=== PATIENT | female | born 1930 | race Caucasian/White ===

== ENCOUNTER → 2016-08-25 | Outpatient (CLI) | payer OTHER ==
[~2016-08-25] MED LIST: ACET-1311 PO; ACET325T96 PO; ASPI-435 PO; BRIM0.1S OPL; CITA20TA9 PO; COMPOUND TOP; ESCI1TAB10 PO; GABA-113 PO; HALO0.5T9 PO; HALO5INJ IM; LOSA50TA6 PO; MELA1TAB3 PO; MOML PO; NRN/100 PO; OMEP20CA59 PO; SODIENE PR
[2016-08-25 11:25] LABS: BLOOD UREA NITROGEN 15 mg/dl (7-18); BUN/CREATININE RATIO 16.5 (10-20); CALCIUM 8.8 mg/dl (8.5-10.1); CARBON DIOXIDE 28 mmol/L (21-32); CHLORIDE 105 mmol/L (98-107); CREATININE 0.88 mg/dl (0.60-1.20); GLUCOSE 109 mg/dl (70-99); POTASSIUM 3.8 mmol/L (3.5-5.1); SODIUM 141 mmol/L (136-145)
== END ==
LOC: C.LABUPHEI 10:44
PROVIDERS: ATTEND Family Medicine
DX: I10 Essential (primary) hypertension (principal)

== ENCOUNTER 2016-11-04 22:27 | Inpatient (IN) | payer OTHER ==
[~2016-11-04] VITALS: Ht 152.4 cm; Wt 54.8 kg
[~2016-11-04 22:27] MED LIST changes: -ACET325T96 PO; -ESCI1TAB10 PO; -GABA-113 PO; -HALO0.5T9 PO; -HALO5INJ IM; -OMEP20CA59 PO
[2016-11-05] VITALS (7 sets, daily range): BP systolic 138–162; BP diastolic 72–101; PULSE 77–96; TEMP 36.4–37.3; O2SAT 97–99; Ht 152.4 cm; Wt 54.8 kg
[2016-11-05 00:07] LABS: HEMATOCRIT 37.1 % (37-47); MEAN CELL VOLUME 94.2 fL (80-100); MEAN CORPUSCULAR HEMOGLOBIN 31.7 pg (25-34); MEAN CORPUSCULAR HGB CONC 33.7 g/dl (32-36); MEAN PLATELET VOLUME 10.8 fL (7.4-10.4); PLATELET COUNT 183 K/uL (130-400); RED BLOOD COUNT 3.94 M/uL (4.2-5.4)
[2016-11-05 00:21] LABS: PROTHROMBIN TIME (PATIENT) 10.7 SECONDS (9.0-12.0)
[2016-11-05] MEDS ORDERED: ESCI1TAB10 PO (00:26)
[2016-11-05 00:29] LABS: CALCIUM 8.9 mg/dl (8.5-10.1); CREATININE 0.95 mg/dl (0.60-1.20); POTASSIUM 3.9 mmol/L (3.5-5.1)
[2016-11-05] MEDS ORDERED: HALO0.5T9 PO (00:29)
[2016-11-05] MEDS ORDERED: GABA-113 PO (00:32)
[2016-11-05] MEDS ORDERED: ACET325T96 PO (00:33)
[2016-11-05] MEDS ORDERED: HALO5INJ IM (00:37)
[2016-11-05] MEDS ORDERED: MOML PO (00:38)
[2016-11-05 00:42] LABS: COMPLETE YES; EOS % 0.2 %; IG% 0.3 %; LYMPH % 4.8 %; LYMPH ABS # 0.51 K/uL (1.2-3.4); NEUT % 90.7 %
[2016-11-05 02:16] LABS: URINE APPEARANCE TURBID (CLEAR); URINE BILIRUBIN NEG (NEG); URINE COLOR YELLOW; URINE NITRITE NEG (NEG); UROBILINOGEN NEG (NEG)
[2016-11-05 02:41] LABS: MANUAL MICROSCOPIC REQUIRED? NO; REVIEW REQ? NO
[2016-11-05 02:42] LABS: SULFASALICYLIC ACID POS (NEG)
[2016-11-05] MEDS ORDERED: CEFTRIAXONE SOD INJ 1 GM ADDVIAL IV STA (03:43)
[2016-11-05] MEDS ORDERED: POLYETHYLENE (MIRALAX) 17 GM PACK PO PRN (05:45)
[2016-11-05] MEDS ORDERED: HALOPERIDOL LACTATE 5 MG/ML 1 ML VIAL IM PRN (05:45)
[2016-11-05] MEDS ORDERED: ACETAMINOPHEN 325 MG TAB PO PRN (05:45)
[2016-11-05] MEDS ORDERED: ALUMINUM/MAGNESIUM/SIMETH (MAALOX MAX) 30 ML UDC PO PRN (05:45)
[2016-11-05] MEDS ORDERED: MAGNESIUM HYDROXIDE SUSP 30 ML UDC PO PRN (05:45)
[2016-11-05] MEDS ORDERED: ONDANSETRON INJ 2 MG/ML 2 ML VIAL IV PRN (05:45)
--- NOTE | 2016-11-05 06:04 | DIAGNOSTIC IMAGING REPORT ---
CHEST ONE VIEW PORTABLE CLINICAL HISTORY: Trauma trauma COMPARISON STUDY: 04/26/2016 FINDINGS: The bones soft tissues and hemidiaphragms are normal. The cardiomediastinal silhouette is normal. The lungs are clear. The pulmonary vasculature is normal. IMPRESSION: Negative chest. Electronically signed by: Willis Dunaway M.D. 11/05/2016 6:03 AM Dictated Date/Time: 11/05/2016 6:03 AM
--- NOTE | 2016-11-05 06:05 | DIAGNOSTIC IMAGING REPORT ---
RIGHT HIP UNILATERAL 2 VIEWS CLINICAL HISTORY: right hip pain, fall Right trauma. Pain. COMPARISON: None. DISCUSSION: Degenerative change right hip. No acute bony abnormality. Degenerative change right acetabulum. Peripheral osteophytic formation throughout. There is no evidence for soft tissue swelling. IMPRESSION: Degenerative change. No acute bony abnormality. Electronically signed by: Willis Dunaway M.D. 11/05/2016 6:04 AM Dictated Date/Time: 11/05/2016 6:03 AM
--- NOTE | 2016-11-05 06:06 | DIAGNOSTIC IMAGING REPORT ---
LEFT HIP UNILATERAL 2 VIEWS CLINICAL HISTORY: left hip pain trauma COMPARISON: None. DISCUSSION: Intertrochanteric fracture left hip. Superior migration left femoral shaft. No evidence for acetabular protrusion. Mild fecal impaction. There is no evidence for soft tissue swelling. IMPRESSION: Intertrochanteric fracture left hip. Moderate superior migration left femoral shaft. Electronically signed by: Willis Dunaway M.D. 11/05/2016 6:05 AM Dictated Date/Time: 11/05/2016 6:04 AM
--- NOTE | 2016-11-05 06:08 | History and Physical ---
History & Physical Date & Time of Service: Nov 05, 2016 at 05:55 Chief Complaint: Fall/ Rt Hip Fx / Fr [place] Primary Care Physician: Josh Thompson History of Present Illness Source: family 86 y/o F w/Hx dementia presents from a nursing facility following a mechanical fall having sustained a fracture of her L hip. The pt is not able to reliably contribute to the HPI and was complaining only of pain at the fracture site at the [place]. I did obtain information form her grandson who is her POA and the NH. She has been in her normal state of health and is able to ambulate regularly. Her grandson states that aside from dementia she does not have any active medical issues although she is taking an antihypertensive. He also stated that he believes she may not want surgery. Past Medical/Surgical History Medical Problems: (1) Alzheimer's disease Status: Chronic Family History No pertinent family history Could not obtain Social History Smoking Status: Never Smoker Alcohol Use: none Allergies Coded Allergies: Penicillins (Unverified Allergy, Severe, ., 04/26/16) Sulfa Antibiotics (Unverified Allergy, Intermediate, ., 04/26/16) Home Medications Scheduled Acetaminophen (Tylenol), 650 MG PO BID Aspirin (Aspirin 81), 1 TAB PO DAILY Escitalopram Oxalate (Lexapro), 20 MG PO QAM Gabapentin (Neurontin), 300 MG PO TID Losartan Potassium (Cozaar), 100 MG PO QAM Magnesium Hydroxide (Milk Of Magnesia), 30 ML PO DAILY/PRN Melatonin-Pyridoxine (Melatonin), 3 MG PO HS [compound], 1 DOSE TOP Q8 Scheduled PRN Acetaminophen Tab (Tylenol), 650 MG PO Q6 PRN for Pain or Fever Haloperidol Lactate (Haldol), 5 MG IM Q24H PRN for Anxiety Review of Systems Could not obtain - c/o pain in hip only Physical Exam Vital Signs Date Time Temp Pulse Resp B/P Pulse Ox O2 Delivery O2 Flow Rate FiO2 11/05/16 05:26 74 18 138/70 97 Nasal Cannula 3.0 11/05/16 03:36 76 20 128/89 97 Nasal Cannula 3.0 11/05/16 02:01 74 21 138/82 97 Nasal Cannula 3.0 11/05/16 00:01 95 21 134/102 98 Nasal Cannula 3.0 11/04/16 23:32 98 12 137/104 98 Nasal Cannula 3.0 11/04/16 22:45 95 Nasal Cannula 3.0 11/04/16 22:40 98 11/04/16 22:37 37.7 96 17 158/102 89 Room Air General Appearance: no apparent distress Head: normocephalic, atraumatic Eyes: normal inspection, EOMI Neck: supple, no JVD Respiratory/Chest: chest non-tender, lungs clear, normal breath sounds Cardiovascular: regular rate, rhythm, no edema, no gallop, no JVD Abdomen/GI: normal bowel sounds, non tender, soft Back: normal inspection, no CVA tenderness, no muscle spasm, normal range of motion Extremities/Musculoskelatal: normal inspection, no calf tenderness, normal capillary refill 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, + pertinent finding (disoriented at baseline) Skin: + pertinent finding (pallor noted) Diagnostics Laboratory Results Results Past 24 Hours Test 11/04/16 23:40 11/05/16 00:00 Range/Units White Blood Count 10.60 4.8-10.8 K/uL Red Blood Count 3.94 4.2-5.4 M/uL Hemoglobin 12.5 12.0-16.0 g/dL Hematocrit 37.1 37-47 % Mean Corpuscular Volume 94.2 80-100 fL Mean Corpuscular Hemoglobin 31.7 25-34 pg Mean Corpuscular Hemoglobin Concent 33.7 32-36 g/dl Platelet Count 183 130-400 K/uL Mean Platelet Volume 10.8 7.4-10.4 fL Neutrophils (%) (Auto) 90.7 % Lymphocytes (%) (Auto) 4.8 % Monocytes (%) (Auto) 4.0 % Eosinophils (%) (Auto) 0.2 % Basophils (%) (Auto) 0.0 % Neutrophils # (Auto) 9.62 1.4-6.5 K/uL Lymphocytes # (Auto) 0.51 1.2-3.4 K/uL Monocytes # (Auto) 0.42 0.11-0.59 K/uL Eosinophils # (Auto) 0.02 0-0.5 K/uL Basophils # (Auto) 0.00 0-0.2 K/uL RDW Standard Deviation 45.8 36.4-46.3 fL RDW Coefficient of Variation 13.2 11.5-14.5 % Immature Granulocyte % (Auto) 0.3 % Immature Granulocyte # (Auto) 0.03 0.00-0.02 K/uL Red Blood Cell Morphology Unremarkable Prothrombin Time 10.7 9.0-12.0 SECONDS Prothromb Time International Ratio 1.0 0.9-1.1 Activated Partial Thromboplast Time 26.8 21.0-31.0 SECONDS Partial Thromboplastin Ratio 1.0 Sodium Level 140 136-145 mmol/L Potassium Level 3.9 3.5-5.1 mmol/L Chloride Level 106 98-107 mmol/L Carbon Dioxide Level 25 21-32 mmol/L Anion Gap 9.0 3-11 mmol/L Blood Urea Nitrogen 26 7-18 mg/dl Creatinine 0.95 0.60-1.20 mg/dl Est Creatinine Clear Calc Drug Dose 30.0 ml/min Estimated GFR () 62.4 Estimated GFR (Non- 53.9 BUN/Creatinine Ratio 27.0 10-20 Random Glucose 158 70-99 mg/dl Calcium Level 8.9 8.5-10.1 mg/dl Urine Color YELLOW Urine Appearance TURBID CLEAR Urine pH 8.0 4.5-7.5 Urine Specific [place] 1.020 1.000-1.030 Urine Protein TRACE NEG Urine Glucose (UA) NEG NEG Urine Ketones NEG NEG Urine Occult Blood 1+ NEG Urine Nitrite NEG NEG Urine Bilirubin NEG NEG Urine Urobilinogen NEG NEG Urine Leukocyte Esterase LARGE NEG Urine WBC (Auto) >30 0-5 /hpf Urine RBC (Auto) 10-30 0-4 /hpf Urine Hyaline Casts (Auto) 1-5 0-5 /lpf Urine Epithelial Cells (Auto) 10-20 0-5 /lpf Urine Bacteria (Auto) 2+ NEG Microbiology Results 11/05/16 Urine Culture, Received Pending Diagnostic Radiology L intertrochanteric fracture EKG Sinus - inf Q wvs Impression Assessment and Plan 86 y/o F w/Hx dementia presents from a nursing facility following a mechanical fall having sustained a fracture of her L hip. The pt is not able to reliably contribute to the HPI and was complaining only of pain at the fracture site. I did obtain information form her grandson who is her POA and the NH. She has been in her normal state of health and is able to ambulate regularly. Her grandson states that aside from dementia she does not have any active medical issues although she is taking an antihypertensive. He also stated that he believes she may not want surgery. 1) Hip fracture - unclear if her grandson would like her to have any surgery - it may depend on the extent of the procedure needed. We will consult orhto and they can have a discssion with her grandson after evaluating her. From a medical standpoint she is likely low risk for short-term adverse outcome however her dementia obviously needs to be considered. RCRI is technically between 0.4-0.9% if you consider her inferior Q waves to be pathological. Will keep NPO, hold ASA and Losartan - provide IVF and continue her psychoactive meds. Morphine provided for pain control 2) HTN - Losartan held as above. 3) Dementia - supportive measures - cont home meds Full code - SCDs Total time for this admit including review of labs, imaging, EKG - discussion with ER attending and pts POA - 33min Level of Care Med/Surg Resuscitation Status FULL RESUSCITATION VTE Prophylaxis VTE Risk Assessment Done? Y/N: Yes Risk Level: Moderate Given or contraindicated: SCD's
--- NOTE | 2016-11-05 06:21 | EMERGENCY ROOM VISIT NOTE ---
History Report prepared by Brittany: Aris Loving Under the Supervision of: Dr. Lenny Quevedo M.D. First contact with patient: 23:08 Chief Complaint: FALL Stated Complaint: FALL/ RT HIP FX / FR [facility] History of Present Illness The patient is an 86 year old female who presents to the Emergency Room with complaints of persistent left hip pain that started about 5 hours ago. The patient presents from [facility] after having a ground level fall. [facility] called her grandson who has power of transactional attorney and did an outpatient x-ray. The patient was transported to the ER for further evaluation. The discomfort is worsened with movement. Pt denies head pain, abdominal pain, or right leg pain.The patient's HPI is limited due to dementia. Source of History: patient, EMS History Limited By: dementia Onset: prior to arrival Position: pelvis (left hip) Timing: other (persistent) Modifying Factors (Worsening): movement Review of Systems The patient's ROS is limited due to dementia. Past Medical & Surgical Medical Problems: (1) Alzheimer's disease (2) Hip fracture Family History No pertinent family history Social History Smoking Status: Unknown if Ever Smoked Marital Status: Housing Status: fdc Occupation Status: retired Current/Historical Medications Scheduled Acetaminophen (Tylenol), 650 MG PO BID Aspirin (Aspirin 81), 1 TAB PO DAILY Escitalopram Oxalate (Lexapro), 20 MG PO QAM Gabapentin (Neurontin), 300 MG PO TID Losartan Potassium (Cozaar), 100 MG PO QAM Magnesium Hydroxide (Milk Of Magnesia), 30 ML PO DAILY/PRN Melatonin-Pyridoxine (Melatonin), 3 MG PO HS [compound], 1 DOSE TOP Q8 Scheduled PRN Acetaminophen Tab (Tylenol), 650 MG PO Q6 PRN for Pain or Fever Haloperidol Lactate (Haldol), 5 MG IM Q24H PRN for Anxiety Allergies Coded Allergies: Penicillins (Unverified Allergy, Severe, ., 04/26/16) Sulfa Antibiotics (Unverified Allergy, Intermediate, ., 04/26/16) Physical Exam Vital Signs Date Time Temp Pulse Resp B/P Pulse Ox O2 Delivery O2 Flow Rate FiO2 11/05/16 05:26 74 18 138/70 97 Nasal Cannula 3.0 11/05/16 03:36 76 20 128/89 97 Nasal Cannula 3.0 11/05/16 02:01 74 21 138/82 97 Nasal Cannula 3.0 11/05/16 00:01 95 21 134/102 98 Nasal Cannula 3.0 11/04/16 23:32 98 12 137/104 98 Nasal Cannula 3.0 11/04/16 22:45 95 Nasal Cannula 3.0 11/04/16 22:40 98 11/04/16 22:37 37.7 96 17 158/102 89 Room Air Physical Exam GENERAL: Awake, tired and mildly uncomfortable, in no distress HENT: Normocephalic, atraumatic. Oropharynx unremarkable. EYES: Normal conjunctiva. Sclera non-icteric. NECK: Supple. No nuchal rigidity. FROM. No JVD. RESPIRATORY: Clear to auscultation. CARDIAC: Regular rate, normal rhythm. Extremities warm and well perfused. Pulses equal. ABDOMEN: Soft, non-distended. No tenderness to palpation. No rebound or guarding. No masses. RECTAL: Deferred. MUSCULOSKELETAL: Chest examination reveals no tenderness. The back is symmetrical on inspection without obvious abnormality. There is no CVA tenderness to palpation. No joint edema. Tenderness about left hip. LOWER EXTREMITIES: Calves are equal size bilaterally and non-tender. No edema. No discoloration. NEURO: Demented sensorium. No sensory or motor deficits noted. SKIN: No rash or jaundice noted. Small skin tear on left elbow. Medical Decision & Procedures ER Provider Diagnostic Interpretation: X-ray: Per my interpretation, radiologist review. Chest x-ray. Findings: A chest x-ray was performed and revealed no pneumothorax , effusion, infiltrate, pulmonary edema, free air under the diaphragm, or wide mediastinum. Hip X-Ray: Left hip shows intertrochanteric fracture Hip X-Ray: Right hip is unremarkable except for degenerative changes. Laboratory Results 11/04/16 23:40 Red Blood Count 3.94, Mean Corpuscular Volume 94.2, Mean Corpuscular Hemoglobin 31.7, Mean Corpuscular Hemoglobin Concent 33.7, Mean Platelet Volume 10.8, Neutrophils (%) (Auto) 90.7, Lymphocytes (%) (Auto) 4.8, Monocytes (%) (Auto) 4.0, Eosinophils (%) (Auto) 0.2, Basophils (%) (Auto) 0.0, Neutrophils # (Auto) 9.62, Lymphocytes # (Auto) 0.51, Monocytes # (Auto) 0.42, Eosinophils # (Auto) 0.02, Basophils # (Auto) 0.00 11/04/16 23:40 Test 11/04/16 23:40 11/05/16 00:00 White Blood Count 10.60 K/uL (4.8-10.8) Red Blood Count 3.94 M/uL (4.2-5.4) Hemoglobin 12.5 g/dL (12.0-16.0) Hematocrit 37.1 % (37-47) Mean Corpuscular Volume 94.2 fL (80-100) Mean Corpuscular Hemoglobin 31.7 pg (25-34) Mean Corpuscular Hemoglobin Concent 33.7 g/dl (32-36) Platelet Count 183 K/uL (130-400) Mean Platelet Volume 10.8 fL (7.4-10.4) Neutrophils (%) (Auto) 90.7 % Lymphocytes (%) (Auto) 4.8 % Monocytes (%) (Auto) 4.0 % Eosinophils (%) (Auto) 0.2 % Basophils (%) (Auto) 0.0 % Neutrophils # (Auto) 9.62 K/uL (1.4-6.5) Lymphocytes # (Auto) 0.51 K/uL (1.2-3.4) Monocytes # (Auto) 0.42 K/uL (0.11-0.59) Eosinophils # (Auto) 0.02 K/uL (0-0.5) Basophils # (Auto) 0.00 K/uL (0-0.2) RDW Standard Deviation 45.8 fL (36.4-46.3) RDW Coefficient of Variation 13.2 % (11.5-14.5) Immature Granulocyte % (Auto) 0.3 % Immature Granulocyte # (Auto) 0.03 K/uL (0.00-0.02) Red Blood Cell Morphology Unremarkable Prothrombin Time 10.7 SECONDS (9.0-12.0) Prothromb Time International Ratio 1.0 (0.9-1.1) Activated Partial Thromboplast Time 26.8 SECONDS (21.0-31.0) Partial Thromboplastin Ratio 1.0 Anion Gap 9.0 mmol/L (3-11) Est Creatinine Clear Calc Drug Dose 30.0 ml/min Estimated GFR () 62.4 Estimated GFR (Non- 53.9 BUN/Creatinine Ratio 27.0 (10-20) Calcium Level 8.9 mg/dl (8.5-10.1) Urine Color YELLOW Urine Appearance TURBID (CLEAR) Urine pH 8.0 (4.5-7.5) Urine Specific [place] 1.020 (1.000-1.030) Urine Protein TRACE (NEG) Urine Glucose (UA) NEG (NEG) Urine Ketones NEG (NEG) Urine Occult Blood 1+ (NEG) Urine Nitrite NEG (NEG) Urine Bilirubin NEG (NEG) Urine Urobilinogen NEG (NEG) Urine Leukocyte Esterase LARGE (NEG) Urine WBC (Auto) >30 /hpf (0-5) Urine RBC (Auto) 10-30 /hpf (0-4) Urine Hyaline Casts (Auto) 1-5 /lpf (0-5) Urine Epithelial Cells (Auto) 10-20 /lpf (0-5) Urine Bacteria (Auto) 2+ (NEG) Laboratory results reviewed by me Medications Administered Medications (Trade) Dose Ordered Sig/Malini Route Start Time Stop Time Status Last Admin Dose Admin Ceftriaxone Sodium (Rocephin Inj) 1 gm NOW STAT IV 11/05/16 03:43 11/05/16 03:44 DC 11/05/16 03:43 1 GM ECG Indication: other Rate (beats per minute): 98 Rhythm: sinus rhythm Findings: 1st degree AV block, Q waves (Septal), no acute ischemic change, left axis deviation, other (LVH) ED Course 2324: The patient was evaluated in room C10. A complete history and physical exam was performed. 0054: At this time, I discussed the patient's case with Dr. Godoy - [facility] and he agreed with the patient's treatment plan and will see the patient in the morning. 0109: At this time, I discussed the patient's case with Dr. Reid - Hospitalist [facility] and he agreed to accept the patient for further evaluation. Medical Decision Prior records reviewed and summarized above. Triage Nursing notes reviewed and agree them. The patient's history was concerning for traumatic injury. Differential diagnosis: Etiologies such as fracture, dislocation, neurovascular compromise, soft tissue injury, metabolic, infection, as well as others were entertained. Physical examination: Consistent with an isolated hip injury. ER treatment provided: IV lock Patient was resting comfortably. She declined analgesia. NPO Bedrest [place] catheter IV Rocephin On reassessment the patient felt better. Diagnostics interpreted by me: ECG: No ischemia The labs revealed an unremarkable CBC, coags, and chemistry panel. Left shift noted on differential. The patient had urinalysis that was concerning for infection Imaging studies: Xrays as above. The patient has an isolated hip fracture, UTI and will need admission to the hospital. Consultation: A consultation was placed with orthopedics, Dr. Godoy. The case was discussed and diagnostics were reviewed. Given the situation admission to internal medicine consult to be most appropriate. Consultation was made with the hospitalist service. The patient was evaluated in the ER for further treatment. The chart was completed utilizing [employer] Speech voice recognition software. Grammatical errors, random word insertions, pronoun errors, and incomplete sentences are an occasional consequence of this system due to software limitations, ambient noise, and hardware issues. Any formal questions or concerns about the content, text, or information contained within the body of this dictation should be directly addressed to the physician for clarification. Consults Time Called: 004 Consulting Physician: Dr. Godoy - Orthopedics [facility] Returned Call: [phone] At this time, I discussed the patient's case with Dr. Godoy and he agreed with the patient's treatment plan and will see the patient in the morning. Additional Consults: Time Called: [phone] Consulted Physician: Dr. Reid - Hospitalist [facility] Returned Call: 010 Additional Comments: At this time, I discussed the patient's case with Dr. Reid and he agreed to accept the patient for further evaluation. Impression Primary Impression: Hip fracture, left Additional Impressions: Urinary tract infection Fall Scribe Attestation The scribe's documentation has been prepared under my direction and personally reviewed by me in its entirety. I confirm that the note above accurately reflects all work, treatment, procedures, and medical decision making performed by me. Departure Information Dispostion Being Evaluated By Hospitalist Referrals Josh Thompson (PCP) Problem Qualifiers
[2016-11-05] MEDS ORDERED: PANTOprazole INJ 80 MG in DEXTROSE 5% 100ML IV SCH (06:45)
[2016-11-05] MEDS ORDERED: PANTOprazole INJ 40 MG in DEXTROSE 5% 100ML IV SCH (07:00)
[2016-11-05] MEDS: SODIUM CHLORIDE 0.9% 1000ML 1,000 ML IV SCH ×2 (07:52→16:34)
[2016-11-05] MEDS ORDERED: ESCITALOPRAM OXALATE 20 MG TAB PO SCH (09:00)
[2016-11-05] MEDS ORDERED: GABAPENTIN 300 MG CAP PO SCH (09:00)
[2016-11-05 11:55] LABS: BASO % 0.1 %; BASO ABS # 0.01 K/uL (0-0.2); COMPLETE YES; EOS % 0.1 %; HEMATOCRIT 37.6 % (37-47); IG% 0.2 %; LYMPH % 5.7 %; LYMPH ABS # 0.62 K/uL (1.2-3.4); MEAN CELL VOLUME 94.7 fL (80-100); MEAN CORPUSCULAR HEMOGLOBIN 31.7 pg (25-34); MEAN CORPUSCULAR HGB CONC 33.5 g/dl (32-36); MEAN PLATELET VOLUME 10.6 fL (7.4-10.4); NEUT % 86.9 %; PLATELET COUNT 167 K/uL (130-400); RED BLOOD COUNT 3.97 M/uL (4.2-5.4); WHITE BLOOD COUNT 10.95 K/uL (4.8-10.8)
[2016-11-05] MEDS: PANTOprazole INJ 40 MG in DEXTROSE 5% 100ML IV SCH ×3 (12:10→22:30)
[2016-11-05] MEDS: MoRPHine SULFATE 2 MG/ML CARP IV PRN (12:17)
[2016-11-05 12:41] LABS: BUN/CREATININE RATIO 23.6 (10-20); CALCIUM 9.1 mg/dl (8.5-10.1); CREATININE 1.1 mg/dl (0.60-1.20); MAGNESIUM 1.9 mg/dl (1.8-2.4); POTASSIUM 3.9 mmol/L (3.5-5.1)
--- NOTE | 2016-11-05 12:42 | Progress Note ---
Subjective Date of Service: Nov 05, 2016. Subjective Pt evaluation today including: conversation w/ patient, conversation w/ family , physical exam, chart review, lab review, review of studies, review of inpatient medication list Per nurse patient had another episodes be coffee ground emesis this morning, she is looks weak frail, but awake and alert, conversational, know name and birthday, No complaint for now, pain is well controlled, Problem List Medical Problems: (1) Fall Status: Acute (2) Fracture of distal radius and ulna Status: Acute (3) Hip fracture, left Status: Acute (4) Urinary tract infection Status: Acute Review of Systems Constitutional: + fatigue, + weakness, No chills, No fever Eyes: No worsening of vision ENT: No hearing loss Respiratory: No cough, No shortness of breath, No sputum Cardiac: No chest pain, No edema Abdomen: No nausea, No pain Musculoskeletal: + joint pain Female : No dysuria Neurologic: No see HPI Endo: + fatigue Objective Vital Signs Date Time Temp Pulse Resp B/P Pulse Ox O2 Delivery O2 Flow Rate FiO2 11/05/16 11:33 36.4 89 16 138/72 98 2.0 11/05/16 07:57 37.3 96 17 162/101 99 Nasal Cannula 3.0 11/05/16 06:52 72 16 123/101 97 11/05/16 06:45 97 3.0 11/05/16 06:17 37.2 72 16 123/101 97 Nasal Cannula 3.0 11/05/16 05:26 74 18 138/70 97 Nasal Cannula 3.0 11/05/16 03:36 76 20 128/89 97 Nasal Cannula 3.0 11/05/16 02:01 74 21 138/82 97 Nasal Cannula 3.0 11/05/16 00:01 95 21 134/102 98 Nasal Cannula 3.0 11/04/16 23:32 98 12 137/104 98 Nasal Cannula 3.0 11/04/16 22:45 95 Nasal Cannula 3.0 11/04/16 22:40 98 11/04/16 22:37 37.7 96 17 158/102 89 Room Air Physical Exam General Appearance: WD/WN, + thin, + pertinent finding (frail, and pale) Eyes: normal inspection, PERRL, EOMI ENT: normal ENT inspection, hearing grossly normal, TMs normal, pharynx normal Respiratory/Chest: chest non-tender, no respiratory distress, no accessory muscle use, + decreased breath sounds Cardiovascular: regular rate, rhythm, no edema, no gallop, no JVD Abdomen: normal bowel sounds, non tender, soft, no pulsatile mass Extremities: normal capillary refill, + pertinent finding (left hip shorter and external rotated ) 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, no motor/sensory deficits, alert, normal mood/affect Skin: normal color Laboratory Results Last 24 Hours Test 11/04/16 23:40 11/05/16 00:00 11/05/16 08:05 11/05/16 11:47 White Blood Count 10.60 K/uL 10.95 K/uL Red Blood Count 3.94 M/uL 3.97 M/uL Hemoglobin 12.5 g/dL 12.3 g/dL 12.6 g/dL Hematocrit 37.1 % 37.6 % Mean Corpuscular Volume 94.2 fL 94.7 fL Mean Corpuscular Hemoglobin 31.7 pg 31.7 pg Mean Corpuscular Hemoglobin Concent 33.7 g/dl 33.5 g/dl Platelet Count 183 K/uL 167 K/uL Mean Platelet Volume 10.8 fL 10.6 fL Neutrophils (%) (Auto) 90.7 % 86.9 % Lymphocytes (%) (Auto) 4.8 % 5.7 % Monocytes (%) (Auto) 4.0 % 7.0 % Eosinophils (%) (Auto) 0.2 % 0.1 % Basophils (%) (Auto) 0.0 % 0.1 % Neutrophils # (Auto) 9.62 K/uL 9.52 K/uL Lymphocytes # (Auto) 0.51 K/uL 0.62 K/uL Monocytes # (Auto) 0.42 K/uL 0.77 K/uL Eosinophils # (Auto) 0.02 K/uL 0.01 K/uL Basophils # (Auto) 0.00 K/uL 0.01 K/uL RDW Standard Deviation 45.8 fL 45.5 fL RDW Coefficient of Variation 13.2 % 13.1 % Immature Granulocyte % (Auto) 0.3 % 0.2 % Immature Granulocyte # (Auto) 0.03 K/uL 0.02 K/uL Red Blood Cell Morphology Unremarkable Prothrombin Time 10.7 SECONDS Prothromb Time International Ratio 1.0 Activated Partial Thromboplast Time 26.8 SECONDS Partial Thromboplastin Ratio 1.0 Sodium Level 140 mmol/L Potassium Level 3.9 mmol/L Chloride Level 106 mmol/L Carbon Dioxide Level 25 mmol/L Anion Gap 9.0 mmol/L Blood Urea Nitrogen 26 mg/dl Creatinine 0.95 mg/dl Est Creatinine Clear Calc Drug Dose 30.0 ml/min Estimated GFR () 62.4 Estimated GFR (Non- 53.9 BUN/Creatinine Ratio 27.0 Random Glucose 158 mg/dl Calcium Level 8.9 mg/dl Urine Color YELLOW Urine Appearance TURBID Urine pH 8.0 Urine Specific [place] 1.020 Urine Protein TRACE Urine Glucose (UA) NEG Urine Ketones NEG Urine Occult Blood 1+ Urine Nitrite NEG Urine Bilirubin NEG Urine Urobilinogen NEG Urine Leukocyte Esterase LARGE Urine WBC (Auto) >30 /hpf Urine RBC (Auto) 10-30 /hpf Urine Hyaline Casts (Auto) 1-5 /lpf Urine Epithelial Cells (Auto) 10-20 /lpf Urine Bacteria (Auto) 2+ Test 11/05/16 12:00 Assessment and Plan 86 y/o F admitted on 11/04/2016 because of mechanical fall having sustained a fracture of her L hip. She was sent to the emergency room from [facility] in [facility] , I'm one of the doctors seeing her in [facility], she was active and walking , aside from dementia she does not have any active medical issues although she is taking an antihypertensive. left Hip fracture RCRI is technically between 0.4-0.9% if you consider her inferior Q waves to be pathological. Will keep NPO, hold ASA and Losartan - provide IVF and continue her psychoactive meds. Morphine provided for pain control Possible upper GI bleeding with coffee-ground emesis HTN - Losartan held as above. Dementia - supportive measures With present of nurse, over the phone I discussed with grandson about patient's condition and care plan, including options and risk and benefit Grandson who is POA , do not want to have any surgery, do not want to do any procedure, he wants to have supportive care/ keep her comfortable, and POA want patient DO NOT RESUSCITATE as well. Grandson son understands patient's poor condition, old age, and possible poor prognosis, include . Continue current care, Protonix drip, pain control, IV fluid, metal casting trades worker consult, possible palliative care consult Continued [facility] stay due to: multiple IV medications needed Discharge planning: [facility] facility
[2016-11-05] MEDS ORDERED: PNEUMOCOCCAL POLYSACCHARIDES 25 MCG/0.5 ML VIAL/SYR IM. ONE (13:00)
[2016-11-05] MEDS ORDERED: PNEUMOCOCCAL ADMINISTRATION CHARGE ONE (13:00)
--- NOTE | 2016-11-05 13:37 | ORTHOPEDIC CONSULTATION ---
DATE OF CONSULTATION: 11/05/2016 HISTORY OF PRESENT ILLNESS: This is an 86-year-old female seen at the request of Dr. Baltazar Sloan for left hip fracture. The patient has a significant dementia and lives at a nursing facility, had a mechanical fall and fractured her left hip. She was seen in [facility], evaluated, x-rayed and admitted to the hospital as indicated. She has a power of patent attorney who is her grandson who was made during her medical decision making for her. PAST MEDICAL HISTORY: Alzheimer disease, chronic depression, hypertension. PAST SURGICAL HISTORY: Noncontributory. ALLERGIES: PENICILLIN AND SULFA ANTIBIOTICS. MEDICATIONS: Acetaminophen, aspirin, Lexapro, Neurontin, Cozaar, mild of magnesia, melatonin and topical compound, acetaminophen and Haldol. SOCIAL HISTORY: She lives in a half-way. She denies tobacco, alcohol or drug use. She is retired. PHYSICAL EXAMINATION: GENERAL: This is an 86-year-old female lying supine in her hospital room bed, awakens to verbal stimulus, has some intelligible speech; however, has flight of ideas and is difficult to redirect. Poor historian. HEENT: Normocephalic, atraumatic. EOMI. NECK: Supple. No JVD. CHEST: Symmetric. LUNGS: Clear. HEART: Regular rate and rhythm. ABDOMEN: Soft, nontender, nondistended. EXTREMITIES: She has a short and internally rotated left lower extremity compared to the right. She has tenderness to palpation of the left proximal hip and femur. Limited active and passive range of motion of the left hip due to pain and guarding. Positive heel strike. Positive log roll. Dorsalis pedis and posterior pulses are 2/4 bilaterally symmetric and equal. IMAGING DATA: Radiographs reviewed demonstrating an intertrochanteric left hip fracture. IMPRESSION: Left displaced intertrochanteric hip fracture. RECOMMENDATIONS: Recommend open reduction internal fixation with a trochanteric fixation nail; however, as per the power of patent attorney, he has made the decision that no operative intervention will be entertained at this time. Therefore, this is a nonoperative, nonsurgical case. Recommend palliative care with ice to the hip if necessary for comfort, pain medication as per medical service, nonweightbearing for a period of at least 6 weeks, left lower extremity. Bilateral heel precautions, TEDs and SCDs and consider a 5-pound Stanton traction if she would tolerate it and if approved by the POA. Thank you for the opportunity to consult in the care of this patient. Please reconsult if needed. LOYDA
[2016-11-05] MEDS ORDERED: INFLUENZA ADMINISTRATION CHARGE ONE (14:00)
[2016-11-05] MEDS ORDERED: INFLUENZA VIRUS QUAD VACCINE 0.5 ML SYR IM. ONE (14:00)
--- NOTE | 2016-11-05 14:55 | GASTROINTESTINAL CONSULTATION ---
DATE OF CONSULTATION: 11/05/2016 DATE OF CONSULTATION: 11/05/2016. REFERRED BY: Dr. Reid. HISTORY OF PRESENT ILLNESS: I was asked by Dr. Reid to consult on this woman for evaluation of hematemesis. The patient was admitted to our institution following a fall and hip fracture. She is a very poor historian. In fact, she was resting when I went to go see her, she was aroused easily, but just complained about pain in her hip. She is a resident of a nursing facility. Soon after being admitted, she had an episode of hematemesis. PAST MEDICAL HISTORY: I reviewed her medical records and past medical history and her past medical history is significant for hypertension and Alzheimer dementia. DRUG ALLERGIES: INCLUDE PENICILLIN AND SULFA. SOCIAL HISTORY: Not significant for smoking or drinking. OUTPATIENT MEDICATIONS: Include baby aspirin, Lexapro, Neurontin, Cozaar, melatonin, Milk of Magnesia p.r.n. DRUG ALLERGIES: INCLUDE PENICILLIN AND SULFA ANTIBIOTICS. REVIEW OF SYSTEMS: As above, but otherwise cannot be obtained because of dementia. PHYSICAL EXAMINATION: GENERAL: Reveals a thin woman who is resting in no distress until I woke her and asked her about pain. VITAL SIGNS: Her most recent temperature is 36.4, blood pressure is 138/72, pulse is 89. SKIN: Anicteric. HEAD, EYES, EARS, NOSE, AND THROAT: Eyes show anicteric sclerae. She has some mild bitemporal wasting. Mouth is clear of lesions. NECK: Thin but supple, no adenopathy. CHEST: Has diffuse rhonchi, but is otherwise clear. HEART: Regular. ABDOMEN: Soft, good bowel sounds. No obvious masses. EXTREMITIES: slitting machine operator all 4. NEUROLOGIC: She is demented but arousable. LABORATORY DATA: Show a hemoglobin on admission of 12.5 and repeat 12 hours later still at 12.6. BUN and creatinine are 26 and 1.1. IMPRESSION: Low level gastrointestinal bleed, most likely related to aspirin and stress of a hip fracture. I highly doubt endoscopy would be of any benefit to her and would change our management. I would recommend that she remain on a proton pump inhibitor. Her aspirin should be stopped unless it needs to be continued because of cardioprotective benefits and hemoglobin be followed. I have no other recommendations. [employer]
[2016-11-05] MEDS: ENALAPRILAT IV 0.625 MG in DEXTROSE 5% 25ML 25 ML IV SCH (21:00)
[2016-11-06] VITALS (7 sets, daily range): BP systolic 116–147; BP diastolic 64–80; PULSE 68–101; TEMP 36.5–37.8; O2SAT 89–96
[2016-11-06] MEDS: PANTOprazole INJ 40 MG in DEXTROSE 5% 100ML IV SCH ×5 (03:10→23:52)
[2016-11-06] MEDS: CEFTRIAXONE SOD INJ 1 GM in DEXTROSE 5% ADD-VANTAGE 50ML 50 ML IV SCH (03:10)
[2016-11-06] MEDS: MoRPHine SULFATE 2 MG/ML CARP IV PRN ×4 (03:15→20:26)
[2016-11-06 07:05] LABS: HEMATOCRIT 30.6 % (37-47); MEAN CELL VOLUME 95.3 fL (80-100); MEAN CORPUSCULAR HEMOGLOBIN 31.8 pg (25-34); MEAN CORPUSCULAR HGB CONC 33.3 g/dl (32-36); MEAN PLATELET VOLUME 10.4 fL (7.4-10.4); PLATELET COUNT 138 K/uL (130-400); RED BLOOD COUNT 3.21 M/uL (4.2-5.4); WHITE BLOOD COUNT 8.73 K/uL (4.8-10.8)
[2016-11-06 07:47] LABS: BUN/CREATININE RATIO 28.6 (10-20); CALCIUM 8.5 mg/dl (8.5-10.1); CREATININE 0.65 mg/dl (0.60-1.20); MAGNESIUM 1.7 mg/dl (1.8-2.4); POTASSIUM 3.8 mmol/L (3.5-5.1)
[2016-11-06 07:49] LABS: BASO % 0.2 %; BASO ABS # 0.02 K/uL (0-0.2); COMPLETE YES; EOS % 1.7 %; IG% 0.2 %; LYMPH % 10.8 %; LYMPH ABS # 0.94 K/uL (1.2-3.4); MONO % 11.7 %; NEUT % 75.4 %
--- NOTE | 2016-11-06 08:44 | Orthopedic Progress Note ---
Orthopedic Progress Note Date of Service Nov 06, 2016. Subjective Denies: SOB, chest pain, light headedness, nausea / vomiting Additional Notes: Patient was awoken, she is not a reliable historian, she was confused upon asking questions if she had pain. Objective calves soft nontender, N/V intact, capillary refill less than 2 sec., toes mobile Patient was oriented to her name but not to time or place. She continue to drift off to sleep during physical exam. She had no pain on palpation of her hip. Date Time Temp Pulse Resp B/P Pulse Ox O2 Delivery O2 Flow Rate FiO2 11/06/16 08:25 36.6 97 16 136/80 93 Room Air 11/06/16 04:00 36.5 100 18 118/64 93 Room Air 11/06/16 04:00 Nasal Cannula 11/06/16 00:06 36.7 101 20 129/75 96 Nasal Cannula 4.0 11/05/16 23:59 Nasal Cannula 11/05/16 20:00 Nasal Cannula 11/05/16 19:23 36.9 93 19 148/88 97 Nasal Cannula 4.0 11/05/16 15:32 98 Nasal Cannula 2.0 11/05/16 15:13 37.2 77 22 157/89 99 Nasal Cannula 4.0 11/05/16 12:28 98 Nasal Cannula 2.0 11/05/16 11:33 36.4 89 16 138/72 98 2.0 Laboratory Results 24 Hours: Test 11/05/16 11:47 11/05/16 16:02 11/05/16 20:36 11/06/16 06:35 White Blood Count 10.95 K/uL 8.73 K/uL Red Blood Count 3.97 M/uL 3.21 M/uL Hemoglobin 12.6 g/dL 11.3 g/dL 11.1 g/dL 10.2 g/dL Hematocrit 37.6 % 30.6 % Mean Corpuscular Volume 94.7 fL 95.3 fL Mean Corpuscular Hemoglobin 31.7 pg 31.8 pg Mean Corpuscular Hemoglobin Concent 33.5 g/dl 33.3 g/dl Platelet Count 167 K/uL 138 K/uL Mean Platelet Volume 10.6 fL 10.4 fL Neutrophils (%) (Auto) 86.9 % 75.4 % Lymphocytes (%) (Auto) 5.7 % 10.8 % Monocytes (%) (Auto) 7.0 % 11.7 % Eosinophils (%) (Auto) 0.1 % 1.7 % Basophils (%) (Auto) 0.1 % 0.2 % Neutrophils # (Auto) 9.52 K/uL 6.58 K/uL Lymphocytes # (Auto) 0.62 K/uL 0.94 K/uL Monocytes # (Auto) 0.77 K/uL 1.02 K/uL Eosinophils # (Auto) 0.01 K/uL 0.15 K/uL Basophils # (Auto) 0.01 K/uL 0.02 K/uL Assessment & Plan Assessment: Left Displaced intertrochanteric hip fracture Plan: 1. Left displaced intertrochanteric hip fracture -As per the power of staff attorney, he has made decision that no operative intervention will be entertained at this time. -This is a nonoperative nonsurgical case. -Recommend palliative care with ice to the hip if necessary for comfort, pain medication as per medical service, nonweightbearing for a period of at least 6 weeks, left lower extremity. -Recommend TEDs and SCDs for Prophylaxis -May consult in the future if surgery is decided upon. Inhouse Planning Pain Management: Morphine Discharge Planning Discharge Planning: uncertain
[2016-11-06] MEDS: ENALAPRILAT IV 0.625 MG in DEXTROSE 5% 25ML 25 ML IV SCH ×2 (09:26→20:11)
[2016-11-06] MEDS ORDERED: ACETAMINOPHEN 325 MG TAB PO PRN (15:45)
--- NOTE | 2016-11-06 15:58 | Progress Note ---
Subjective Date of Service: Nov 06, 2016. Problem List Medical Problems: (1) Fall Status: Acute (2) Fracture of distal radius and ulna Status: Acute (3) Hip fracture, left Status: Acute (4) Urinary tract infection Status: Acute Objective Vital Signs Date Time Temp Pulse Resp B/P Pulse Ox O2 Delivery O2 Flow Rate FiO2 11/06/16 15:42 37.8 98 18 137/70 89 Room Air 11/06/16 15:35 Room Air 11/06/16 11:59 92 Room Air 11/06/16 11:48 37.6 93 18 147/78 92 11/06/16 08:25 36.6 97 16 136/80 93 Room Air 11/06/16 07:55 Room Air 11/06/16 04:00 36.5 100 18 118/64 93 Room Air 11/06/16 04:00 Nasal Cannula 11/06/16 00:06 36.7 101 20 129/75 96 Nasal Cannula 4.0 11/05/16 23:59 Nasal Cannula 11/05/16 20:00 Nasal Cannula 11/05/16 19:23 36.9 93 19 148/88 97 Nasal Cannula 4.0 Laboratory Results Last 24 Hours Test 11/05/16 16:02 11/05/16 20:36 11/06/16 06:35 Hemoglobin 11.3 g/dL 11.1 g/dL 10.2 g/dL White Blood Count 8.73 K/uL Red Blood Count 3.21 M/uL Hematocrit 30.6 % Mean Corpuscular Volume 95.3 fL Mean Corpuscular Hemoglobin 31.8 pg Mean Corpuscular Hemoglobin Concent 33.3 g/dl Platelet Count 138 K/uL Mean Platelet Volume 10.4 fL Neutrophils (%) (Auto) 75.4 % Lymphocytes (%) (Auto) 10.8 % Monocytes (%) (Auto) 11.7 % Eosinophils (%) (Auto) 1.7 % Basophils (%) (Auto) 0.2 % Neutrophils # (Auto) 6.58 K/uL Lymphocytes # (Auto) 0.94 K/uL Monocytes # (Auto) 1.02 K/uL Eosinophils # (Auto) 0.15 K/uL Basophils # (Auto) 0.02 K/uL RDW Standard Deviation 46.6 fL RDW Coefficient of Variation 13.3 % Immature Granulocyte % (Auto) 0.2 % Immature Granulocyte # (Auto) 0.02 K/uL Red Blood Cell Morphology Unremarkable Sodium Level 142 mmol/L Potassium Level 3.8 mmol/L Chloride Level 110 mmol/L Carbon Dioxide Level 25 mmol/L Anion Gap 7.0 mmol/L Blood Urea Nitrogen 19 mg/dl Creatinine 0.65 mg/dl Est Creatinine Clear Calc Drug Dose 43.8 ml/min Estimated GFR () 92.5 Estimated GFR (Non- 79.8 BUN/Creatinine Ratio 28.6 Random Glucose 106 mg/dl Calcium Level 8.5 mg/dl Magnesium Level 1.7 mg/dl Assessment and Plan 86 y/o F admitted on 11/04/2016 because of mechanical fall having sustained a fracture of her L hip. She was sent to the emergency room from retirement in [facility] , I'm one of the doctors seeing her in [facility], she was active and walking , aside from dementia she does not have any active medical issues although she is taking an antihypertensive. left Hip fracture , per orthopedic the best will be ORIF, however POA declined procedure, Orthopedic recommend palliative care with ice to the hip if necessary for comfort, pain control, nonweightbearing for a period of at least 6 weeks, left lower extremity. Bilateral heel precautions, TEDs and SCDs, and consider a 5-pound Stanton traction if she would tolerate it and if approved by the POA. For the traction, need to talk to power of deputy attorney general, he said he is coming today but not coming yet. Proteus UTI, on Rocephin iv day 3 Possible upper GI bleeding with coffee-ground emesis, likely from gastritis secondary to aspirin, or from stress of fracture Patient no more has coffee-ground emesis, has stop aspirin, continue PPI, start clear liquid diet, GI saw the patient, again POA decide no procedure HTN stable- Losartan held as above. Dementia - supportive measures Yesterday on 11/05/2016 , With present of nurse, over the phone I discussed with grandson about patient's condition and care plan, including options and risk and benefit Grandson who is POA , do not want to have any surgery, do not want to do any procedure, he wants to have supportive care/ keep her comfortable, and POA want patient DO NOT RESUSCITATE as well. Grandson son understands patient's poor condition, old age, and possible poor prognosis, include . Continue current care, Protonix drip, pain control, IV fluid, follow-up H&H caisson worker consult, possible palliative care consult Continued [facility] stay due to: multiple IV medications needed Discharge planning: halfway facility
[2016-11-06] MEDS: MAGNESIUM OXIDE 400 MG TAB PO SCH ×2 (20:11→20:26)
[2016-11-07] VITALS (9 sets, daily range): BP systolic 108–166; BP diastolic 61–77; PULSE 51–86; TEMP 36.3–38; O2SAT 91–94
[2016-11-07] MEDS ORDERED: ACETAMINOPHEN IV 100 ML IV PRN (00:45)
[2016-11-07] MEDS ORDERED: SODIUM CHLOR 0.45% + 20MEQ KCL 1,000 ML IV SCH (00:45)
[2016-11-07] MEDS ORDERED: MAGNESIUM SULFATE 1GM / D5W 1 GM in PREMIXED IN D5W 100 ML IV SCH (01:00)
[2016-11-07] MEDS: CEFTRIAXONE SOD INJ 1 GM in DEXTROSE 5% ADD-VANTAGE 50ML 50 ML IV SCH (04:09)
[2016-11-07 07:03] LABS: BASO % 0.1 %; BASO ABS # 0.01 K/uL (0-0.2); COMPLETE YES; EOS % 1.1 %; HEMATOCRIT 27.8 % (37-47); IG% 0.1 %; LYMPH % 11.1 %; LYMPH ABS # 0.94 K/uL (1.2-3.4); MEAN CELL VOLUME 94.6 fL (80-100); MEAN CORPUSCULAR HGB CONC 33.8 g/dl (32-36); MEAN PLATELET VOLUME 10.1 fL (7.4-10.4); MONO % 12.7 %; NEUT % 74.9 %; PLATELET COUNT 115 K/uL (130-400); RED BLOOD COUNT 2.94 M/uL (4.2-5.4); WHITE BLOOD COUNT 8.48 K/uL (4.8-10.8)
[2016-11-07 07:50] LABS: BUN/CREATININE RATIO 29.4 (10-20); CALCIUM 8.5 mg/dl (8.5-10.1); CREATININE 0.7 mg/dl (0.60-1.20); MAGNESIUM 2.2 mg/dl (1.8-2.4); PHOSPHORUS 1.8 mg/dl (2.5-4.9); POTASSIUM 3.7 mmol/L (3.5-5.1)
[2016-11-07] MEDS: MAGNESIUM OXIDE 400 MG TAB PO SCH (09:00)
[2016-11-07] MEDS: PANTOprazole INJ 40 MG in SYRINGE 0 ML IV SCH ×2 (09:16→22:05)
[2016-11-07] MEDS: ENALAPRILAT IV 0.625 MG in DEXTROSE 5% 25ML 25 ML IV SCH (09:16)
[2016-11-07] MEDS: MoRPHine SULFATE 2 MG/ML CARP IV PRN (10:12)
--- NOTE | 2016-11-07 13:56 | Hospitalist Progress Note ---
Hospitalist Progress Note Date of Service Nov 07, 2016. Subjective Pt evaluation today including: conversation w/ patient, conversation w/ family , physical exam, chart review, lab review, review of inpatient medication list Pain: patient denies Medications Medications (Trade) Dose Ordered Sig/Malini Route Start Time Stop Time Status Last Admin Dose Admin Acetaminophen 650 mg 650 mg Q6 PRN PO 11/06/16 15:45 12/06/16 15:44 11/06/16 16:47 650 MG Acetaminophen 100 ml @ 400 mls/hr Q8H PRN IV 11/07/16 00:45 12/07/16 00:44 11/07/16 01:08 400 MLS/HR Magnesium Sulfate 1 gm/Prmx 100 ml @ 100 mls/hr 0100 IV 11/07/16 01:00 11/07/16 01:59 DC 11/07/16 01:08 100 MLS/HR Potassium Chloride/Sodium Chloride 1,000 ml @ 75 mls/hr [id number] IV 11/07/16 00:45 11/08/16 03:24 11/07/16 01:07 75 MLS/HR Pantoprazole Sodium/Syringe (Protonix Inj/ Syringe) 10 ml @ 5 mls/min DAILY@ IV 11/07/16 09:00 12/07/16 08:59 11/07/16 09:16 5 MLS/MIN Objective Vital Signs Date Time Temp Pulse Resp B/P Pulse Ox O2 Delivery O2 Flow Rate FiO2 11/07/16 12:38 36.6 86 18 110/68 93 Room Air 11/07/16 12:00 Room Air 11/07/16 08:09 37.1 80 20 113/70 92 Room Air 11/07/16 08:00 Room Air 11/07/16 04:03 37.5 80 18 108/61 94 Room Air 11/07/16 04:00 Room Air 11/07/16 00:40 38.0 83 18 113/64 91 Room Air 11/06/16 23:53 Room Air 11/06/16 20:00 Room Air 11/06/16 19:57 37.5 68 20 116/70 93 Room Air 11/06/16 15:42 37.8 98 18 137/70 89 Room Air 11/06/16 15:35 Room Air Physical Exam General Appearance: no apparent distress Eyes: sclerae normal ENT: hearing grossly normal, pharynx normal Neck: supple, no JVD Respiratory/Chest: lungs clear Cardiovascular: regular rate, rhythm, no gallop, no JVD Abdomen: non tender Skin: normal color Laboratory Results 11/04/16 23:40 Red Blood Count 3.94, Mean Corpuscular Volume 94.2, Mean Corpuscular Hemoglobin 31.7, Mean Corpuscular Hemoglobin Concent 33.7, Mean Platelet Volume 10.8, Neutrophils (%) (Auto) 90.7, Lymphocytes (%) (Auto) 4.8, Monocytes (%) (Auto) 4.0, Eosinophils (%) (Auto) 0.2, Basophils (%) (Auto) 0.0, Neutrophils # (Auto) 9.62, Lymphocytes # (Auto) 0.51, Monocytes # (Auto) 0.42, Eosinophils # (Auto) 0.02, Basophils # (Auto) 0.00 11/05/16 08:05 11/05/16 11:47 Red Blood Count 3.97, Mean Corpuscular Volume 94.7, Mean Corpuscular Hemoglobin 31.7, Mean Corpuscular Hemoglobin Concent 33.5, Mean Platelet Volume 10.6, Neutrophils (%) (Auto) 86.9, Lymphocytes (%) (Auto) 5.7, Monocytes (%) (Auto) 7.0, Eosinophils (%) (Auto) 0.1, Basophils (%) (Auto) 0.1, Neutrophils # (Auto) 9.52, Lymphocytes # (Auto) 0.62, Monocytes # (Auto) 0.77, Eosinophils # (Auto) 0.01, Basophils # (Auto) 0.01 11/05/16 16:02 11/05/16 20:36 11/06/16 06:35 Red Blood Count 3.21, Mean Corpuscular Volume 95.3, Mean Corpuscular Hemoglobin 31.8, Mean Corpuscular Hemoglobin Concent 33.3, Mean Platelet Volume 10.4, Neutrophils (%) (Auto) 75.4, Lymphocytes (%) (Auto) 10.8, Monocytes (%) (Auto) 11.7, Eosinophils (%) (Auto) 1.7, Basophils (%) (Auto) 0.2, Neutrophils # (Auto ) 6.58, Lymphocytes # (Auto) 0.94, Monocytes # (Auto) 1.02, Eosinophils # (Auto ) 0.15, Basophils # (Auto) 0.02 11/07/16 06:55 Red Blood Count 2.94, Mean Corpuscular Volume 94.6, Mean Corpuscular Hemoglobin 32.0, Mean Corpuscular Hemoglobin Concent 33.8, Mean Platelet Volume 10.1, Neutrophils (%) (Auto) 74.9, Lymphocytes (%) (Auto) 11.1, Monocytes (%) (Auto) 12.7, Eosinophils (%) (Auto) 1.1, Basophils (%) (Auto) 0.1, Neutrophils # (Auto ) 6.35, Lymphocytes # (Auto) 0.94, Monocytes # (Auto) 1.08, Eosinophils # (Auto ) 0.09, Basophils # (Auto) 0.01 11/04/16 23:40 11/05/16 11:47 11/06/16 06:35 11/07/16 06:55 Test 11/04/16 23:40 11/05/16 00:00 11/05/16 11:47 11/06/16 06:35 White Blood Count 10.60 K/uL (4.8-10.8) 10.95 K/uL (4.8-10.8) 8.73 K/uL (4.8-10.8) Red Blood Count 3.94 M/uL (4.2-5.4) 3.97 M/uL (4.2-5.4) 3.21 M/uL (4.2-5.4) Hemoglobin 12.5 g/dL (12.0-16.0) 12.6 g/dL (12.0-16.0) 10.2 g/dL (12.0-16.0) Hematocrit 37.1 % (37-47) 37.6 % (37-47) 30.6 % (37-47) Mean Corpuscular Volume 94.2 fL (80-100) 94.7 fL (80-100) 95.3 fL (80-100) Mean Corpuscular Hemoglobin 31.7 pg (25-34) 31.7 pg (25-34) 31.8 pg (25-34) Mean Corpuscular Hemoglobin Concent 33.7 g/dl (32-36) 33.5 g/dl (32-36) 33.3 g/dl (32-36) Platelet Count 183 K/uL (130-400) 167 K/uL (130-400) 138 K/uL (130-400) Mean Platelet Volume 10.8 fL (7.4-10.4) 10.6 fL (7.4-10.4) 10.4 fL (7.4-10.4) Neutrophils (%) (Auto) 90.7 % 86.9 % 75.4 % Lymphocytes (%) (Auto) 4.8 % 5.7 % 10.8 % Monocytes (%) (Auto) 4.0 % 7.0 % 11.7 % Eosinophils (%) (Auto) 0.2 % 0.1 % 1.7 % Basophils (%) (Auto) 0.0 % 0.1 % 0.2 % Neutrophils # (Auto) 9.62 K/uL (1.4-6.5) 9.52 K/uL (1.4-6.5) 6.58 K/uL (1.4-6.5) Lymphocytes # (Auto) 0.51 K/uL (1.2-3.4) 0.62 K/uL (1.2-3.4) 0.94 K/uL (1.2-3.4) Monocytes # (Auto) 0.42 K/uL (0.11-0.59) 0.77 K/uL (0.11-0.59) 1.02 K/uL (0.11-0.59) Eosinophils # (Auto) 0.02 K/uL (0-0.5) 0.01 K/uL (0-0.5) 0.15 K/uL (0-0.5) Basophils # (Auto) 0.00 K/uL (0-0.2) 0.01 K/uL (0-0.2) 0.02 K/uL (0-0.2) RDW Standard Deviation 45.8 fL (36.4-46.3) 45.5 fL (36.4-46.3) 46.6 fL (36.4-46.3) RDW Coefficient of Variation 13.2 % (11.5-14.5) 13.1 % (11.5-14.5) 13.3 % (11.5-14.5) Immature Granulocyte % (Auto) 0.3 % 0.2 % 0.2 % Immature Granulocyte # (Auto) 0.03 K/uL (0.00-0.02) 0.02 K/uL (0.00-0.02) 0.02 K/uL (0.00-0.02) Red Blood Cell Morphology Unremarkable Unremarkable Prothrombin Time 10.7 SECONDS (9.0-12.0) Prothromb Time International Ratio 1.0 (0.9-1.1) Activated Partial Thromboplast Time 26.8 SECONDS (21.0-31.0) Partial Thromboplastin Ratio 1.0 Anion Gap 9.0 mmol/L (3-11) 11.0 mmol/L (3-11) 7.0 mmol/L (3-11) Est Creatinine Clear Calc Drug Dose 30.0 ml/min 25.9 ml/min 43.8 ml/min Estimated GFR () 62.4 52.3 92.5 Estimated GFR (Non- 53.9 45.1 79.8 BUN/Creatinine Ratio 27.0 (10-20) 23.6 (10-20) 28.6 (10-20) Calcium Level 8.9 mg/dl (8.5-10.1) 9.1 mg/dl (8.5-10.1) 8.5 mg/dl (8.5-10.1) Urine Color YELLOW Urine Appearance TURBID (CLEAR) Urine pH 8.0 (4.5-7.5) Urine Specific [place] 1.020 (1.000-1.030) Urine Protein TRACE (NEG) Urine Glucose (UA) NEG (NEG) Urine Ketones NEG (NEG) Urine Occult Blood 1+ (NEG) Urine Nitrite NEG (NEG) Urine Bilirubin NEG (NEG) Urine Urobilinogen NEG (NEG) Urine Leukocyte Esterase LARGE (NEG) Urine WBC (Auto) >30 /hpf (0-5) Urine RBC (Auto) 10-30 /hpf (0-4) Urine Hyaline Casts (Auto) 1-5 /lpf (0-5) Urine Epithelial Cells (Auto) 10-20 /lpf (0-5) Urine Bacteria (Auto) 2+ (NEG) Magnesium Level 1.9 mg/dl (1.8-2.4) 1.7 mg/dl (1.8-2.4) Test 11/07/16 06:55 11/07/16 13:30 White Blood Count 8.48 K/uL (4.8-10.8) Red Blood Count 2.94 M/uL (4.2-5.4) Hemoglobin 9.4 g/dL (12.0-16.0) Hematocrit 27.8 % (37-47) Mean Corpuscular Volume 94.6 fL (80-100) Mean Corpuscular Hemoglobin 32.0 pg (25-34) Mean Corpuscular Hemoglobin Concent 33.8 g/dl (32-36) Platelet Count 115 K/uL (130-400) Mean Platelet Volume 10.1 fL (7.4-10.4) Neutrophils (%) (Auto) 74.9 % Lymphocytes (%) (Auto) 11.1 % Monocytes (%) (Auto) 12.7 % Eosinophils (%) (Auto) 1.1 % Basophils (%) (Auto) 0.1 % Neutrophils # (Auto) 6.35 K/uL (1.4-6.5) Lymphocytes # (Auto) 0.94 K/uL (1.2-3.4) Monocytes # (Auto) 1.08 K/uL (0.11-0.59) Eosinophils # (Auto) 0.09 K/uL (0-0.5) Basophils # (Auto) 0.01 K/uL (0-0.2) RDW Standard Deviation 45.7 fL (36.4-46.3) RDW Coefficient of Variation 13.2 % (11.5-14.5) Immature Granulocyte % (Auto) 0.1 % Immature Granulocyte # (Auto) 0.01 K/uL (0.00-0.02) Anion Gap 9.0 mmol/L (3-11) Est Creatinine Clear Calc Drug Dose 44.0 ml/min Estimated GFR () 90.3 Estimated GFR (Non- 77.9 BUN/Creatinine Ratio 29.4 (10-20) Calcium Level 8.5 mg/dl (8.5-10.1) Phosphorus Level 1.8 mg/dl (2.5-4.9) Magnesium Level 2.2 mg/dl (1.8-2.4) Date/Time Source Procedure Growth Status 11/05/16 07:55 Nasal MRSA DNA Surveillance Screen - Final Specimen Negative for MRSA by DNA Probe Complete 11/05/16 02:00 Urine,Catheterized Urine Culture - Final Proteus Mirabilis Complete Last 24 Hours Test 11/07/16 06:55 11/07/16 13:30 White Blood Count 8.48 K/uL Red Blood Count 2.94 M/uL Hemoglobin 9.4 g/dL Hematocrit 27.8 % Mean Corpuscular Volume 94.6 fL Mean Corpuscular Hemoglobin 32.0 pg Mean Corpuscular Hemoglobin Concent 33.8 g/dl Platelet Count 115 K/uL Mean Platelet Volume 10.1 fL Neutrophils (%) (Auto) 74.9 % Lymphocytes (%) (Auto) 11.1 % Monocytes (%) (Auto) 12.7 % Eosinophils (%) (Auto) 1.1 % Basophils (%) (Auto) 0.1 % Neutrophils # (Auto) 6.35 K/uL Lymphocytes # (Auto) 0.94 K/uL Monocytes # (Auto) 1.08 K/uL Eosinophils # (Auto) 0.09 K/uL Basophils # (Auto) 0.01 K/uL RDW Standard Deviation 45.7 fL RDW Coefficient of Variation 13.2 % Immature Granulocyte % (Auto) 0.1 % Immature Granulocyte # (Auto) 0.01 K/uL Sodium Level 141 mmol/L Potassium Level 3.7 mmol/L Chloride Level 108 mmol/L Carbon Dioxide Level 24 mmol/L Anion Gap 9.0 mmol/L Blood Urea Nitrogen 21 mg/dl Creatinine 0.70 mg/dl Est Creatinine Clear Calc Drug Dose 44.0 ml/min Estimated GFR () 90.3 Estimated GFR (Non- 77.9 BUN/Creatinine Ratio 29.4 Random Glucose 101 mg/dl Calcium Level 8.5 mg/dl Phosphorus Level 1.8 mg/dl Magnesium Level 2.2 mg/dl Diagnostic Results CHEST ONE VIEW PORTABLE CLINICAL HISTORY: Trauma trauma COMPARISON STUDY: 04/26/2016 FINDINGS: The bones soft tissues and hemidiaphragms are normal. The cardiomediastinal silhouette is normal. The lungs are clear. The pulmonary vasculature is normal. IMPRESSION: Negative chest. Electronically signed by: Willis Dunaway M.D. 11/05/2016 6:03 AM Assessment and Plan (1) Hip fracture Assessment & Plan: comfort measures only for fractures. Iv tylenol being used for pain. Discussed in detail with POA. Return to SNF with comfort care. If medicare stops reimbursement, switch to hospice care. Return with [facility] order, and POLST form completed. Will ask for palliative care consultation to complete POLST and add additional layer of support for grandson. (2) Wrist fracture (3) Urinary tract infection (4) Hematemesis Assessment & Plan: will check hemoglobin tomorrow. Conservative management, ASA stopped and PPI being utilized. (5) Alzheimer's disease Assessment & Plan: poor prognosis based upon advanced age, and hip fracture with dementia prognosis of less than six months. Discharge planning: shelter facility Problem Qualifiers (1) Hip fracture: Encounter type: subsequent encounter
[2016-11-07 14:28] LABS: HEMATOCRIT 30.6 % (37-47); MEAN CELL VOLUME 97.1 fL (80-100); MEAN CORPUSCULAR HEMOGLOBIN 31.7 pg (25-34); MEAN CORPUSCULAR HGB CONC 32.7 g/dl (32-36); MEAN PLATELET VOLUME 10.9 fL (7.4-10.4); PLATELET COUNT 126 K/uL (130-400); RED BLOOD COUNT 3.15 M/uL (4.2-5.4); WHITE BLOOD COUNT 9.05 K/uL (4.8-10.8)
[2016-11-07 14:51] LABS: BUN/CREATININE RATIO 26.6 (10-20); CALCIUM 8.3 mg/dl (8.5-10.1); CREATININE 0.7 mg/dl (0.60-1.20); POTASSIUM 3.8 mmol/L (3.5-5.1)
--- NOTE | 2016-11-07 16:29 | Palliative Care Progress Note ---
Assessment and Plan Spoke with patient's grandson, Eduardo Matt, over the phone. He stated he didn 't think he would have to come back to the hospital and was not sure if she was going to be able to. Did confirm that the plan is for comfort care/hospice care. I have not seen the patient yet. Formal consult to follow tomorrow and I will follow up with the grandson.
[2016-11-08] VITALS: O2SAT 93
[2016-11-08 00:34] VITALS: BP 159/80; PULSE 90; TEMP 36.4; O2SAT 94
[2016-11-08] MEDS: CEFTRIAXONE SOD INJ 1 GM in DEXTROSE 5% ADD-VANTAGE 50ML 50 ML IV SCH (03:59)
[2016-11-08 07:59] VITALS: BP 148/77; PULSE 88; TEMP 36.9; O2SAT 95
[2016-11-08] MEDS: MAGNESIUM OXIDE 400 MG TAB PO SCH (08:00)
[2016-11-08] MEDS: PANTOprazole INJ 40 MG in SYRINGE 0 ML IV SCH (08:21)
[2016-11-08] MEDS ORDERED: OMEP20CA59 PO (11:56)
--- NOTE | 2016-11-08 12:01 | Discharge Instructions ---
Discharge Instructions Date of Service Nov 08, 2016. Admission Reason for Admission: Hematemesis, Hip Fracture, Left Discharge Discharge Diagnosis / Problem: hip fx Discharge Goals Goal(s): Decrease discomfort Activity Recommendations Activity Limitations: as noted below . Instructions / Follow-Up Instructions / Follow-Up comfort care only. Hospice consult. Do not rehospitalize. Case management to discuss with son when she arrives to SNF. Current Hospital Diet Patient's current hospital diet: Regular as tolerated Discharge Diet Recommended Diet: Regular Diet Fluid Restriction: None Diet Texture: Dental Soft (bite-sized) Pending Studies Studies pending at discharge: no Medical Emergencies . Who to Call and When: Medical Emergencies: If at any time you feel your situation is an emergency, please call 911 immediately. . Non-Emergent Contact Non-Emergency issues call your: Primary Care Provider . . "Provider Documentation" section prepared by Maxi Rey. VTE Core Measure Inpt VTE Proph given/why not?: SCD's, Contraindicated (patient with gi bleed)
--- NOTE | 2016-11-08 12:06 | Discharge Summary ---
Discharge Summary Date of Service Nov 08, 2016. Discharge Summary Admission Date: Nov 05, 2016 at 06:23 Discharge Date: Nov 08, 2016 Discharge Disposition: [facility] facility Principal Diagnosis: hip fracture Medication Reconciliation Continued Medications: Acetaminophen (Tylenol) 325 Mg Tab 650 MG PO BID, TAB Acetaminophen Tab (Tylenol) 325 Mg Tab 650 MG PO Q6 PRN for Pain or Fever, TAB NEEDED FOR PAIN # 1-4, OR TEMP >101. NTE 3GM APAP/24HRS Escitalopram Oxalate (Lexapro) 20 Mg Tab 20 MG PO QAM, TAB Gabapentin (Neurontin) 300 Mg Cap 300 MG PO TID, CAP Magnesium Hydroxide (Milk Of Magnesia) 30 Ml Susp 30 ML PO DAILY/PRN, ML NEEDED FOR NO BOWEL MOVEMENT IN 3 DAYS. Melatonin-Pyridoxine (Melatonin) 1 Tab Tab 3 MG PO HS Discontinued Medications: Aspirin (Aspirin 81) 81 Mg Tab 1 TAB PO DAILY Haloperidol Lactate (Haldol) 5 Mg/Ml Inj 5 MG IM Q24H PRN for Anxiety Losartan Potassium (Cozaar) 50 Mg Tab 100 MG PO QAM, TAB [compound] () 1 DOSE TOP Q8 ABH Gel (Ativan 0.5/Benedryl 6.25/haldol 1) - apply to inner wrist topically every 8 hours Hospital Course (1) Hip fracture comfort measures only for fractures. Iv tylenol being used for pain. Discussed in detail with POA. Return to SNF with comfort care. If medicare stops reimbursement, switch to hospice care. Return with [facility] order, and POLST form completed. Will ask for palliative care consultation to complete POLST and add additional layer of support for grandson. Patient should have comfort care at SNF or hospice, which ever works best for the patient and her son. She should not be returned to the hospital. (2) Wrist fracture (3) Urinary tract infection (4) Hematemesis (5) Alzheimer's disease Poor prognosis. Life expectancy less than 6 months. Total Time Spent: Greater than 30 minutes This includes examination of the patient, discharge planning, medication reconciliation, and communication with other providers. Discharge Instructions Please refer to the electronic Patient Visit Report (Discharge Instructions) for additional information. Problem Qualifiers (1) Hip fracture: Encounter type: subsequent encounter
[2016-11-08 12:29] VITALS: BP 148/77; PULSE 88; TEMP 36.9; O2SAT 95
--- NOTE | 2016-11-08 13:07 | Palliative Care Consultation ---
Consultation Date of Consultation: Nov 08, 2016. Requesting Physician: Dr. Rey Attending Physician: Dr. Rey Reason for Consultation: Goals of care History of Present Illness This 86 year old female patient with a history of dementia presented from the [facility] four days ago following a mechanical fall and subsequently sustaining a fracture of her left hip. History obtained from record as patient is a poor historian and no one is in the room with her at this time. She was evaluated by orthopedic surgery for repair but the grandson/ POA, Eduardo, opted to not pursue surgery given his grandmother's poor prognosis and advanced dementia. She had some hematemesis for which she was evaluated by GI who determined it was most likely from being on ASA and the stress of the fracture event. Again, there was no intervention. The grandson decided to pursue comfort measures only and for patient to go back to the [facility]. Palliative care consulted to establish goals of care. I met with the patient today in room 414. She had her eyes closed and would not respond to my questions. She did eventually say "No," when I asked if she is in pain, but continued to keep her eyes closed. She did not offer any other conversation or ROS. I spoke with the patient's grandson, Eduardo, yesterday who said that he is unsure if he's going to be able to make it back to the hospital to fill out a POLST but did confirm that she is comfort measures only and will be going back to the [facility]. He does not want her to be hospitalized unless comfort needs cannot be met. Past Medical/Surgical History Medical History: Alzheimer's disease/dementia Hypertension Social History Smoking Status: Unknown if Ever Smoked Marital Status: Occupation Status: retired Review of Systems unable to obtain, patient would not answer. Allergies Coded Allergies: Penicillins (Unverified Allergy, Severe, ., 04/26/16) Sulfa Antibiotics (Unverified Allergy, Intermediate, ., 04/26/16) Medications Current Inpatient Medications Medications (Trade) Dose Ordered Sig/Malini Route Start Time Stop Time Status Last Admin Dose Admin Haloperidol Lactate (Haldol Inj) 5 mg Q24H PRN IM 11/05/16 05:45 12/05/16 05:44 Ondansetron HCl (Zofran Inj) 4 mg Q6H PRN IV 11/05/16 05:45 12/05/16 05:44 Morphine Sulfate 2 mg 2 mg Q3H PRN IV 11/05/16 05:45 11/19/16 05:44 11/07/16 10:12 2 MG Ceftriaxone Sodium/Dextrose (Rocephin Inj/ Dextrose Add-Friedens 50ML) 50 ml @ 100 mls/hr Q24H IV 11/06/16 04:00 11/09/16 04:29 11/08/16 03:59 100 MLS/HR Acetaminophen (Tylenol Tab) 650 mg Q6 PRN PO 11/06/16 15:45 12/06/16 15:44 11/06/16 16:47 650 MG Magnesium Oxide 400 mg 400 mg BID PO 11/06/16 21:00 11/13/16 20:59 Acetaminophen 100 ml @ 400 mls/hr Q8H PRN IV 11/07/16 00:45 12/07/16 00:44 11/07/16 01:08 400 MLS/HR Pantoprazole Sodium/Syringe (Protonix Inj/ Syringe) 10 ml @ 5 mls/min DAILY@ IV 11/07/16 09:00 12/07/16 08:59 11/08/16 08:21 5 MLS/MIN Physical Exam Date Time Temp Pulse Resp B/P Pulse Ox O2 Delivery O2 Flow Rate FiO2 11/08/16 10:10 Room Air 11/08/16 08:20 Room Air 11/08/16 07:59 36.9 88 18 148/77 95 Room Air 11/08/16 00:34 36.4 90 20 159/80 94 Room Air 11/08/16 00:00 93 Room Air 11/07/16 20:33 37.8 82 18 166/77 94 Room Air 11/07/16 20:30 Room Air 11/07/16 20:07 37.4 83 16 92 4.0 11/07/16 20:04 Room Air 11/07/16 20:01 37.4 83 16 166/61 92 Room Air 11/07/16 19:53 Room Air 11/07/16 16:00 Room Air 11/07/16 14:59 37.4 83 16 152/70 92 Room Air 11/07/16 12:38 36.6 86 18 110/68 93 Room Air General Appearance: no apparent distress Neck: no JVD Respiratory: no respiratory distress, no accessory muscle use, + decreased breath sounds Cardiovascular: regular rate, rhythm, no edema Abdomen: normal bowel sounds, soft Neurologic/Psychiatric: + pertinent finding (advacned dementia, would not answer questions) Laboratory Results Last 24 Hours Test 11/07/16 13:58 White Blood Count 9.05 K/uL Red Blood Count 3.15 M/uL Hemoglobin 10.0 g/dL Hematocrit 30.6 % Mean Corpuscular Volume 97.1 fL Mean Corpuscular Hemoglobin 31.7 pg Mean Corpuscular Hemoglobin Concent 32.7 g/dl RDW Standard Deviation 46.3 fL RDW Coefficient of Variation 13.2 % Platelet Count 126 K/uL Mean Platelet Volume 10.9 fL Sodium Level 141 mmol/L Potassium Level 3.8 mmol/L Chloride Level 109 mmol/L Carbon Dioxide Level 24 mmol/L Anion Gap 8.0 mmol/L Blood Urea Nitrogen 19 mg/dl Creatinine 0.70 mg/dl Est Creatinine Clear Calc Drug Dose 44.0 ml/min Estimated GFR () 90.3 Estimated GFR (Non- 77.9 BUN/Creatinine Ratio 26.6 Random Glucose 89 mg/dl Calcium Level 8.3 mg/dl Assessment & Plan Palliative Performance Scale: 20 % Problem list: Left hip fracture- no surgical intervention Dementia- advanced Ambulatory dysfunction- bed rest s/p hip fracture and no surgical intervention Hematemesis- resolved Wrist fracture UTI Goals of care (Z51.5) Palliative care plan: discussed with patient's grandson Eduardo Matt and Dr. Rey. -Comfort measures only -DNR/DNI -Do not hospitalize unless comfort needs cannot be met -Recommend Roxanol 5mg Q4h PO PRN pain if pain does develop -Return to the [facility] for comfort care Thank you kindly for this consult. Please contact me if there are any further palliative care needs.
== END 2016-11-08 16:00 | disposition hospice, inpatient (51) | DRG 536 ==
LOC: ENRESERVTM → ENRESERVDT → CANRESERV → EDBD 22:27 → C.EDC 22:29 → C.2T 11-05 06:23 → EDBEDREQ 11-05 06:24 → EDBEDREQSVC 11-05 06:24 → C.4E 11-07 18:35
PROVIDERS: ADMIT Internal Medicine; ATTEND Hospitalist
DX: S72.142A Displaced intertrochanteric fracture of left femur, initial encounter for closed fracture (principal); Z51.5 Encounter for palliative care; N39.0 Urinary tract infection, site not specified; K92.0 Hematemesis; F02.80 Dementia in other diseases classified elsewhere, unspecified severity, without behavioral disturbance, psychotic disturbance, mood disturbance, and anxiety; G30.9 Alzheimer's disease, unspecified; Z88.2 Allergy status to sulfonamides; Z88.0 Allergy status to penicillin; I10 Essential (primary) hypertension; T39.015A Adverse effect of aspirin, initial encounter; B96.4 Proteus (mirabilis) (morganii) as the cause of diseases classified elsewhere; F32.9 Major depressive disorder, single episode, unspecified; Y92.129 Unspecified place in nursing home as the place of occurrence of the external cause; W18.39XA Other fall on same level, initial encounter; Z66 Do not resuscitate